=== PATIENT | female | born 1945 ===

== ENCOUNTER → 2016-10-10 | Outpatient (CLI) | payer OTHER | END | disposition home or self-care (01) | LOC: C.LABMFLN 09:47 | PROVIDERS: ATTEND Family Medicine | DX: J02.9 Acute pharyngitis, unspecified (principal) ==

== ENCOUNTER → 2017-05-08 | Outpatient (CLI) | payer OTHER | END | disposition home or self-care (01) | LOC: C.LABMFLN 10:24 | PROVIDERS: ATTEND Family Medicine | DX: R30.0 Dysuria (principal); R39.15 Urgency of urination ==